=== PATIENT | female | born 1955 | race Caucasian/White ===

== ENCOUNTER 2019-12-07 08:55 | Outpatient (CLI) | payer SELFPAY ==
--- NOTE | 2019-12-07 09:02 | CT_ITS ---
WS: [id number] CT NECK WITH CONTRAST HISTORY: ENLARGED LYMPH NODE TECHNIQUE: Contiguous 5 mm axial images are performed through the neck with intravenous contrast. Sag ittal and coronal reformats are also submitted. All CT scans at [facility] use at least o ne of these dose optimization techniques: automated exposure control; mA and/or kV adjustment per pat ient size (includes targeted exams where dose is matched to clinical indication); or iterative recons truction. CONTRAST: CONTRAST: Omnipaque 300; 95 mL IV. DLP: 2353.39 mGycm COMPARISON: 03/12/2011 and 01/22/2011. Ultrasound 11/09/2019 Marker is placed over the RIGHT neck in the area of palpable abnormality. Corresponding to the palpab le abnormality is intensely enhancing mass in the superficial, inferior lobe of the RIGHT parotid gla nd. Mass extends over a length of 1.9 x 1.2 x 1.5 cm. New since 2010 and corresponds to the abnormal ity seen on the recent ultrasound. Nasopharynx, oropharynx, hypopharynx and larynx are unremarkable. No soft tissue masses or abnormal e nhancement. Torus tubarius and fossa of Rosenmuller and parapharyngeal fat are normal. No significant lymphadenopathy is identified. Thyroid gland and submandibular and LEFT parotid gland are normally enhancing with no masses. No osseous abnormalities. Visualized portions of the skull base demonstrate no abnormalities. Orbits and globes are within norm al limits. No soft tissue masses. Visualized paranasal sinuses and mastoid air cells are normal. Severe centrilobular and paraseptal emphysematous changes at the lung apices. Mild atherosclerosis in the visualized aorta. Scattered calcifications in the carotid arteries. CT/CT neck w con* [id number] IMPRESSION: 1. Intensely enhancing, well-circumscribed mass in the superficial RIGHT parot id measures 1.9 x 1.2 x 1.5 cm. 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 Suggest fine-needle aspiration and/or surgical removal for complete evalu ation. 2. No adenopathy. 3. Emphysema and partially calcified aorta.
[2019-12-07 10:08] LABS: Blood Urea Nitrogen 6 mg/dL (8-23); Glomerular Filtration Rate 101.3 mL/min (90-130)
[2019-12-07] MEDS: iohexol 300 mg/mL 100 mL Btl IV (10:25)
== END 2019-12-07 08:56 | disposition home or self-care (01) ==
PROVIDERS: Radiology Diagnostic Radiology; Family Provider Registered Nurse; PCP Registered Nurse; Visit Provider Registered Nurse
DX: I70.0 Atherosclerosis of aorta (principal); J43.9 Emphysema, unspecified; R59.0 Localized enlarged lymph nodes; R22.1 Localized swelling, mass and lump, neck
CPT/HCPCS: 70491; 82565; 84520; Q9967

== ENCOUNTER → 2019-12-27 14:52 | Outpatient (BNVA) | payer SELFPAY | PROVIDERS: Family Provider Registered Nurse; PCP Registered Nurse; Referring Provider Registered Nurse; Visit Provider Otolaryngology | DX: K11.8 Other diseases of salivary glands (principal); K12.0 Recurrent oral aphthae; F17.210 Nicotine dependence, cigarettes, uncomplicated | CPT/HCPCS: 99203; 99214 ==

== ENCOUNTER → 2020-05-22 10:51 | Outpatient (BNVA) | payer SELFPAY | PROVIDERS: Family Provider Registered Nurse; PCP Registered Nurse; Visit Provider Registered Nurse | DX: L57.0 Actinic keratosis (principal) | CPT/HCPCS: 88305 ==

== ENCOUNTER → 2021-11-01 15:49 | Outpatient (BNVA) | payer SELFPAY | PROVIDERS: Family Provider Registered Nurse; PCP Registered Nurse; Visit Provider Registered Nurse | DX: I10 Essential (primary) hypertension (principal); J42 Unspecified chronic bronchitis; K11.8 Other diseases of salivary glands | CPT/HCPCS: 80053; 80061; 82306; 85025 ==

== ENCOUNTER → 2022-06-04 09:32 | Outpatient (BNVA) | payer MEDICARE, SELFPAY | PROVIDERS: Family Provider Registered Nurse; PCP Registered Nurse; Visit Provider Registered Nurse | DX: R33.9 Retention of urine, unspecified (principal); J42 Unspecified chronic bronchitis; F17.210 Nicotine dependence, cigarettes, uncomplicated; N28.1 Cyst of kidney, acquired; R39.9 Unspecified symptoms and signs involving the genitourinary system; K11.8 Other diseases of salivary glands; I10 Essential (primary) hypertension | CPT/HCPCS: 81000; 87086 ==

== ENCOUNTER → 2023-04-07 10:26 | Outpatient (BNVA) | payer MEDICARE, SELFPAY | PROVIDERS: Family Provider Registered Nurse; PCP Registered Nurse; Visit Provider Registered Nurse | DX: I10 Essential (primary) hypertension (principal); E78.5 Hyperlipidemia, unspecified | CPT/HCPCS: 80053; 80061; 85025 ==

== ENCOUNTER → 2024-07-06 11:25 | Outpatient (BNVA) | payer MEDICARE, SELFPAY | PROVIDERS: Family Provider Registered Nurse; PCP Registered Nurse; Visit Provider Registered Nurse | DX: I10 Essential (primary) hypertension (principal); N39.0 Urinary tract infection, site not specified; M54.40 Lumbago with sciatica, unspecified side | CPT/HCPCS: 80053; 80061; 81000; 84443; 85025; 86140; 87086 ==

== ENCOUNTER → 2024-07-15 13:23 | Outpatient (BNVA) | payer MEDICARE, SELFPAY | PROVIDERS: Family Provider Registered Nurse; PCP Registered Nurse; Visit Provider Registered Nurse | DX: N39.0 Urinary tract infection, site not specified (principal) | CPT/HCPCS: 81000 ==

== ENCOUNTER 2024-08-04 08:45 | Outpatient (CLI) | payer MEDICARE, SELFPAY ==
--- NOTE | 2024-08-04 08:45 | MR_ITS ---
WS: [id number] MRI LUMBAR SPINE NONCONTRAST HISTORY: Injury status post fall. LEFT lower extremity pain. COMPARISON: None available. TECHNIQUE: Sagittal and axial multisequence imaging is submitted. Study was terminated early due to patient's pain and claustrophobia. Expansile osseous lesion centered in the LEFT L1 foramen. Low signal mass on the T1 and T2 sequences with extension into the posterior L1 vertebral body. Bony expansion and tumor extending into the spin ous process and the LEFT posterior elements. This is a lobulated mass extending over a length of 5.2 cm beginning in the T12 and L1 foramen and contiguously extending with expansion into the L1-L2 milena en. There is involvement of the nerve roots at T12-L1 and L1-2. There is also involvement of the LEFT transverse process of L1. Tumor extends medially into the subarachnoid space with compression of the cord/conus. There is significant RIGHT anterior displacement of the conus. Largest transverse diamet er 4.6 cm. AP diameter 3.4 cm. The remaining lumbar vertebral bodies are normally aligned. Small amount of marrow edema in the poste rior LEFT lateral L1 vertebral body at the site of tumor encroachment. Conus terminates normally at L1-2 disc level. L1-L2: Cord compression by the tumor described above. L2-L3: Normal. L3-L4: Mild disc bulging. L4-L5: Mild disc bulging with facet and ligamentum flavum hypertrophy. L5-S1: Mild disc bulging with a central disc protrusion and annular fissure. Numerous bilateral cystic masses are noted within each kidney. Some of these masses are not completel y cystic. No retroperitoneal adenopathy is appreciated. MR/MR lumbar spine wo con* [id number] IMPRESSION: 1. Large tissue mass with osseous expansion centered in the LEFT lateral L1-2 foramen. There is bony expansion and involvement of the LEFT lateral vertebral body and the posterior elements of L1 including the spinous process and LEFT tr ansverse process. 2. Soft tissue mass measures 4.6 x 3.4 cm and extends over a length of 5.2 cm beginning at the T12-L1 foramen and extending below the L1 vertebral body. Mass is of decreased signal on both T1 and T2 sequences suggesting there may be patsy cification or hemosiderin. Differential would include metastatic lesions with h emorrhage such as renal carcinoma or breast carcinoma or melanoma. Nerve sheath tumors and sarcoma should also be considered. Additional evaluation necessary. 3. Significant cord compression by the soft tissue mass with expansion of the L1-2 foramen. 4. Multiple cystic masses noted within each kidney need to be further evaluate d. Some of these contain increased signal suggesting they're not simple cysts. Notified DAWNA Roblero at 08/04/2024 10:37 AM.
== END 2024-08-04 08:46 | disposition home or self-care (01) ==
LOC: RAD 08:46
PROVIDERS: Family Provider Registered Nurse; PCP Registered Nurse; Visit Provider Registered Nurse
DX: R22.2 Localized swelling, mass and lump, trunk (principal); Q61.02 Congenital multiple renal cysts; G95.20 Unspecified cord compression; W19.XXXA Unspecified fall, initial encounter
CPT/HCPCS: 72148

== ENCOUNTER → 2024-08-10 12:57 | Outpatient (BNVA) | payer MEDICARE, SELFPAY | PROVIDERS: Family Provider Registered Nurse; PCP Registered Nurse; Visit Provider Orthopaedic Surgery | DX: M54.9 Dorsalgia, unspecified (principal); C79.51 Secondary malignant neoplasm of bone | CPT/HCPCS: 72100; 99204 ==